=== PATIENT | male | born 1995 | race Asian ===

== ENCOUNTER 2017-08-05 12:35 | Outpatient (CLI) | payer BC, OTHER ==
[2017-08-07 05:07] LABS: *EBV AB VCA IGM <36.0 U/mL (0.0-35.9)
== END 2017-08-05 23:59 | disposition home or self-care (01) ==
LOC: LAB 12:35
PROVIDERS: ATTEND Family Medicine
DX: J02.9 Acute pharyngitis, unspecified (principal)
CPT/HCPCS: 36415

== ENCOUNTER → 2017-10-22 | Outpatient (CLI) | payer BC, OTHER | END | disposition home or self-care (01) | LOC: XRAY 12:27 | PROVIDERS: ATTEND Family Medicine | DX: I37.1 Nonrheumatic pulmonary valve insufficiency (principal); I07.1 Rheumatic tricuspid insufficiency | CPT/HCPCS: 93307 ==

== ENCOUNTER 2020-03-29 11:50 | Emergency (ER) | payer BC, OTHER ==
[~2020-03-29] VITALS: Ht 165.1 cm; Wt 52.6 kg
[2020-03-29] MEDS ORDERED: TDAP DIPH,PERTUSS,TET VAC/PF 0.5 ML DISP.SYRIN IM ONE ×2 (12:23→12:30)
[2020-03-29] MEDS ORDERED: BACITRACIN ZINC OINT 15 GM TUBE TOP STA (12:24)
--- NOTE | 2020-03-29 12:46 | NUR ---
Patient discharged to home in stable condition. Written and verbal after care instructions given. Patient verbalizes understanding of instructions. Stressed follow up or return to ER for worsening s/s.
== END 2020-03-29 12:51 | disposition home or self-care (01) ==
LOC: ER 11:50
DX: S60.572A Other superficial bite of hand of left hand, initial encounter (principal); S80.872A Other superficial bite, left lower leg, initial encounter; S50.371A Other superficial bite of right elbow, initial encounter; W54.0XXA Bitten by dog, initial encounter; Y93.89 Activity, other specified; Y92.480 Sidewalk as the place of occurrence of the external cause; Y99.8 Other external cause status
CPT/HCPCS: 90715; A4663

== ENCOUNTER 2021-10-06 09:07 | Outpatient (CLI) | payer BC, OTHER ==
[2021-10-06 09:44] LABS: *BILIRUBIN,URIN NEGATIVE (NEGATIVE); *CLARITY,URINE CLEAR (CLEAR); *COLOR,URINE YELLOW (YELLOW); *KETONES,URINE NEGATIVE (NEGATIVE); *UROBILINOGEN,URINE 0.2 E.U./dl (NORMAL); LEUKOCYTE ESTERASE ,URINE NEGATIVE (NEGATIVE); NITRITE, URINE NEGATIVE (NEGATIVE); PH,URINE 5.5 (5.0-8.0); UGLUCOSE NEGATIVE (NEGATIVE)
[2021-10-06 09:51] LABS: HEMATOCRIT 47.5 % (36.7-47.1); MEAN CORPUSCULAR HEMOGLOBIN 31.8 uug (23.8-33.4); MEAN CORPUSCULAR VOLUME 91.5 fL (73.0-96.2); PLATELET COUNT (AUTO) 264 K/uL (152-348)
[2021-10-06 09:53] LABS: *BLOOD, URINE TRACE (NEGATIVE)
[2021-10-06 10:00] LABS: BILIRUBIN,TOTAL 2.1 mg/dL (0.2-1.0); CREATININE 1.2 mg/dL (0.6-1.3); POTASSIUM 4.1 mmol/L (3.5-5.1); TOTAL PROTEIN, SERUM 7.8 g/dL (6.4-8.2)
[2021-10-06 10:25] LABS: THYROID STIMULATING HORMONE 1.249 mIU/mL (0.358-3.740)
[2021-10-06 12:40] LABS: BACTERIA,URINE FEW /HPF (NONE SEEN); RBC,URINE 0-3 /HPF (0-3); SQUAMOUS EPITHELIAL CELL,UR FEW /HPF (NONE SEEN); URINE AMORPHOUS URATE MANY /HPF
== END 2021-10-06 23:59 | disposition home or self-care (01) ==
LOC: LAB 09:07
PROVIDERS: ATTEND Family Medicine
DX: E55.9 Vitamin D deficiency, unspecified (principal); Z00.01 Encounter for general adult medical examination with abnormal findings
CPT/HCPCS: 36415; 82306; 84443; 85025

== ENCOUNTER 2021-10-12 15:14 | Outpatient (CLI) | payer BC, OTHER ==
[2021-10-12 15:43] LABS: *BILIRUBIN,URIN NEGATIVE (NEGATIVE); *BLOOD, URINE NEGATIVE (NEGATIVE); *CLARITY,URINE CLEAR (CLEAR); *COLOR,URINE YELLOW (YELLOW); *KETONES,URINE NEGATIVE (NEGATIVE); *UROBILINOGEN,URINE 0.2 E.U./dl (NORMAL); LEUKOCYTE ESTERASE ,URINE NEGATIVE (NEGATIVE); NITRITE, URINE NEGATIVE (NEGATIVE); UGLUCOSE NEGATIVE (NEGATIVE)
== END 2021-10-12 23:59 | disposition home or self-care (01) ==
LOC: LAB 15:14
PROVIDERS: ATTEND Family Medicine
DX: R31.9 Hematuria, unspecified (principal)
CPT/HCPCS: 87086